=== PATIENT | male | born 1990 | race African-American/Black ===

== ENCOUNTER 2020-04-06 16:54 | Inpatient (IN) | payer OTHER, SELFPAY ==
[~2020-04-06 16:54] MED LIST: Dexamethasone 20 MG/5 ML VIAL ONE; Glycopyrrolate 0.2 MG/ML 5 ML SYRINGE ONE; Lidocaine 1% PF 5 ML VIAL ONE; PROPOFOL 200 MG/20 ML VIAL ONE; Rocuronium Bromide 10 MG/ML (10ML VIAL) ONE; Succinylcholine 200 MG/10 ml SYRINGE FS ONE
[2020-04-06 17:16] LABS: Hemoglobin 14.9 g/dL (14.0-18.0); Mean Corpuscular HGB CONC 33.4 g/dL (32.0-36.0); Mean Corpuscular Hemoglobin 27.4 pg (27.0-31.0); Mean Corpuscular Volume 81.9 fL (78.0-98.0); Mean Platelet Volume 6.2 fL (7.4-10.4); Platelet Count 273 thou/uL (130-400); RBC Distribution Width 11.9 % (11.5-14.5); Red Blood Cell (RBC) Count 5.45 mill/uL (4.70-6.10); White Blood Cell (WBC) Count 19.9 thou/uL (4.8-10.8)
[2020-04-06 17:20] LABS: INR-International Normal Ratio 1.1; PTT 25.2 sec (22.9-36.1); Prothrombin Time 14.4 sec (12.0-14.7)
[2020-04-06] MEDS ORDERED: CEFAZOLIN 1 GM VIAL ONE (17:25)
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
[2020-04-06 17:27] LABS: Bilirubin Negative (Negative); Blood, Urine Moderate (Negative); Glucose, Urine (Dipstick) Negative (Negative); Ketone, Urine Negative (Negative); Leukocyte Negative (Negative); Nitrite Negative (Negative); Protein, Urine (Dipstick) Negative (Neg-Trace); Specific Gravity, Urine 1.015 (1.005-1.030); Urobilinogen 0.2 mg/dL (Less than 2)
[2020-04-06 17:28] LABS: Clarity Hazy (Clear)
[2020-04-06 17:29] LABS: Bacteria/HPF None Seen HPF (None Seen); Squamous Epithelial None Seen HPF (0-3); WBC/HPF None Seen HPF (0-3)
[2020-04-06 17:29] LABS: Lactic Acid 3.4 mmol/L (0.5-2.2)
[2020-04-06 17:31] LABS: Band 9 % (5-11); Lymphocytes 4 % (21-51); MDiff Complete? YES; Monocytes 6 % (0-10); Myelocyte 1 % (0-0); Neutrophil 76 % (42-75); Platelet Morphology Comment Appears Adequate; RBC Morphology Normal; Reactive Lymphocytes 4 % (0-10)
[2020-04-06 17:34] LABS: ALT (SGPT) 40 U/L (8-55); AST (SGOT) 45 U/L (5-34); Albumin 3.4 g/dL (3.5-5.0); Alkaline Phosphatase 54 U/L (40-110); Anion Gap 13 mmol/L (10-20); BUN (Urea Nitrogen) 11 mg/dL (8.9-20.6); Bilirubin, Total 0.4 mg/dL (0.2-1.2); Calc. Creatinine Clearance 0 mL/min (70-130); Calcium 7.4 mg/dL (7.8-10.44); Carbon Dioxide 19 mmol/L (22-29); Chloride 112 mmol/L (98-107); Globulin 2.1 g/dL (2.4-3.5); Glucose 124 mg/dL (70-105); Potassium 3.4 mmol/L (3.5-5.1); Protein, Total 5.5 g/dL (6.0-8.3); Sodium 141 mmol/L (136-145)
[2020-04-06] MEDS ORDERED: Fentanyl 100 MCG/2 ML VIAL ONE ×2 (17:45→18:25)
[2020-04-06] MEDS ORDERED: Dextrose 5% in Water 1,000 ML IV PRN (17:54)
[2020-04-06] MEDS ORDERED: Morphine 2 MG/ML VIAL SLOW IVP PRN (17:54)
[2020-04-06] MEDS ORDERED: Ibuprofen 600 MG TAB PO SCH (17:54)
[2020-04-06] MEDS ORDERED: Ondansetron PF 4 MG/2 ML Vial IVP PRN (17:54)
[2020-04-06] MEDS ORDERED: Dextrose 50% Abboject 50 ML SYRINGE SLOW IVP PRN (17:54)
[2020-04-06] MEDS ORDERED: Ondansetron ODT 4 MG TAB PO PRN (17:54)
[2020-04-06] MEDS ORDERED: traMADol HCl 50 MG TAB PO PRN (17:54)
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
[2020-04-06] MEDS ORDERED: CEFAZOLIN 2 GM in Premix Bag 1 BAG IVPB SCH (18:00)
[2020-04-06] MEDS ORDERED: traMADol HCl 50 MG TAB PO SCH (18:00)
[2020-04-06] MEDS ORDERED: Lidocaine 1% w/Epinephrine 1:100K 20 ML VIAL ONE (18:19)
[2020-04-06] MEDS ORDERED: Midazolam HCl 2 mg/2 ml Vial ONE ×2 (18:25→20:45)
[2020-04-06] MEDS ORDERED: Morphine 2 MG/ML VIAL ONE (18:40)
[2020-04-06] MEDS ORDERED: AFRIN NASAL MIST 15 ML BOT ONE (18:49)
[2020-04-06] MEDS ORDERED: Ketamine 50 MG/ML (10ML VIAL) ONE (18:50)
[2020-04-06] MEDS ORDERED: Chlorhexidine Gluconate 15 ML UDCUP SSP ONE (18:52)
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
[2020-04-06] MEDS ORDERED: SUGAMMADEX SODIUM 200 MG/2 ML VIAL ONE (20:19)
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
[2020-04-06] MEDS ORDERED: Acetaminophen/Codeine Oral Solution 120 mg/12 mg per 5 ml PO PRN ×2 (20:46)
[2020-04-06] MEDS ORDERED: Acetaminophen 500 MG TAB PO SCH (21:00)
[2020-04-06] MEDS ORDERED: Famotidine 20 MG TAB PO SCH (21:00)
[2020-04-06 22:59] VITALS: BMI 34.5
[2020-04-06] MEDS: Ketorolac Tromethamine 30 MG/ML VIAL IVP SCH ×2 (23:12→23:16)
[2020-04-06] MEDS: Chlorhexidine Gluconate 15 ML UDCUP SSP SCH (23:12)
[2020-04-06] MEDS: Lactated Ringer's 1,000 ML IV SCH (23:12)
[2020-04-06] MEDS: Docusate 100 MG CAP PO SCH (23:12)
[2020-04-06] MEDS: Gabapentin 300 MG CAP PO SCH (23:13)
[2020-04-06] MEDS: Famotidine/PF 20 mg/2ml Vial SLOW IVP SCH (23:13)
[2020-04-06] MEDS: Senokot S 8.6-50 MG TAB PO SCH (23:13)
[2020-04-06] MEDS: Clindamycin/D5W 900 MG in Premix Bag 1 BAG IVPB SCH (23:16)
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
[2020-04-07] MEDS: Morphine 4 MG/ML VIAL SLOW IVP PRN (03:29)
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
[2020-04-07] MEDS: Ketorolac Tromethamine 30 MG/ML VIAL IVP SCH ×4 (05:12→23:44)
[2020-04-07] MEDS: Clindamycin/D5W 900 MG in Premix Bag 1 BAG IVPB SCH ×3 (05:12→21:16)
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
[2020-04-07 06:51] LABS: #Lymphocytes 0.8 thou/uL (1.20-3.40); %Basophils 0.2 % (0.0-1.0); %Lymphocytes 6.6 % (21.0-51.0); %Monocytes 8.6 % (0.0-10.0); %Neutrophils 84.5 % (42.0-75.0); Hemoglobin 13.7 g/dL (14.0-18.0); Mean Corpuscular HGB CONC 34.1 g/dL (32.0-36.0); Mean Corpuscular Hemoglobin 27.9 pg (27.0-31.0); Mean Corpuscular Volume 81.7 fL (78.0-98.0); Mean Platelet Volume 6.5 fL (7.4-10.4); Platelet Count 215 thou/uL (130-400); RBC Distribution Width 12.1 % (11.5-14.5); Red Blood Cell (RBC) Count 4.92 mill/uL (4.70-6.10); White Blood Cell (WBC) Count 11.9 thou/uL (4.8-10.8)
[2020-04-07 06:56] LABS: INR-International Normal Ratio 1.1; Prothrombin Time 14.3 sec (12.0-14.7)
[2020-04-07 06:57] LABS: PTT 29.2 sec (22.9-36.1)
[2020-04-07 07:06] LABS: Phosphorus 4.2 mg/dL (2.3-4.7)
[2020-04-07 07:10] LABS: ALT (SGPT) 39 U/L (8-55); AST (SGOT) 52 U/L (5-34); Albumin 3.3 g/dL (3.5-5.0); Alkaline Phosphatase 44 U/L (40-110); Anion Gap 11 mmol/L (10-20); BUN (Urea Nitrogen) 15 mg/dL (8.9-20.6); Bilirubin, Total 0.5 mg/dL (0.2-1.2); Calc. Creatinine Clearance 147 mL/min (70-130); Carbon Dioxide 23 mmol/L (22-29); Chloride 109 mmol/L (98-107); Globulin 2.1 g/dL (2.4-3.5); Glucose 127 mg/dL (70-105); Magnesium 1.7 mg/dL (1.6-2.6); Potassium 4.2 mmol/L (3.5-5.1); Protein, Total 5.4 g/dL (6.0-8.3); Sodium 139 mmol/L (136-145)
[2020-04-07] MEDS ORDERED: Magnesium Sulfate 3 GM in Sodium Chloride 0.9% 100 ML IV SCH (08:00)
[2020-04-07] MEDS: Lactated Ringer's 1,000 ML IV SCH ×3 (08:24→15:25)
[2020-04-07] MEDS: Famotidine/PF 20 mg/2ml Vial SLOW IVP SCH ×2 (08:26→21:16)
[2020-04-07] MEDS: Chlorhexidine Gluconate 15 ML UDCUP SSP SCH ×2 (08:28→21:15)
[2020-04-07] MEDS: Gabapentin 300 MG CAP PO SCH ×3 (08:28→22:12)
[2020-04-07] MEDS: Senokot S 8.6-50 MG TAB PO SCH ×2 (08:28→22:12)
[2020-04-07] MEDS: Docusate 100 MG CAP PO SCH ×2 (08:28→22:11)
--- NOTE | 2020-04-07 08:38 | CT ---
Exam: Facial bone CT without contrast COMPARISON: 04/06/2020. TECHNIQUE: Maxillofacial CT is performed in the axial plane. Sagittal, coronal and three-dimensional volumetric images are submitted for interpretation. FINDINGS: There are expected post traumatic changes in the soft tissues overlying the maxilla and mandible. Bilateral ocular lenses are appropriately located. Both globes are intact. Retrobulbar fat is preserv ed. Symmetric attenuation of the optic nerves and ocular rectus muscles. Visualized calvarium is intact. Adequate aeration of the visualized paranasal sinuses and mastoid air cells. Intact pterygoid plates and zygomatic arches. No nasal bone fracture. Maxillary ridge is intact. There is a fracture involving the anterior left mandibular body. Fracture may traverse the inferior a lveolar canal and compromise the left V3 cranial nerve. There is a comminuted and displaced fracture involving the distal body and angle of the right mandible. There is associated displacement. Visualized aerodigestive tract is patent. IMPRESSION: Bilateral mandible fracture as described above. Overall, post traumatic changes are similar to the CT performed on 04/06/2020. Transcribed Date/Time: 04/07/2020 9:06 AM
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
[2020-04-08 05:30] LABS: #Eosinphils 0.2 thou/uL (0.0-0.7); #Monocytes 0.8 thou/uL (0.11-0.59); #Neutrophils 6.3 thou/uL (1.40-6.50); %Basophils 0.1 % (0.0-1.0); %Lymphocytes 12.5 % (21.0-51.0); %Monocytes 9.5 % (0.0-10.0); %Neutrophils 75.8 % (42.0-75.0); Hemoglobin 11.5 g/dL (14.0-18.0); Mean Corpuscular HGB CONC 33.7 g/dL (32.0-36.0); Mean Corpuscular Hemoglobin 27.8 pg (27.0-31.0); Mean Corpuscular Volume 82.6 fL (78.0-98.0); Mean Platelet Volume 5.8 fL (7.4-10.4); Platelet Count 162 thou/uL (130-400); Red Blood Cell (RBC) Count 4.13 mill/uL (4.70-6.10); White Blood Cell (WBC) Count 8.3 thou/uL (4.8-10.8)
[2020-04-08] MEDS: Ketorolac Tromethamine 30 MG/ML VIAL IVP SCH ×4 (05:49→23:35)
[2020-04-08] MEDS: Clindamycin/D5W 900 MG in Premix Bag 1 BAG IVPB SCH ×3 (05:50→22:05)
[2020-04-08 05:53] LABS: SARS-CoV-2 PCR by NAA Not Detected (NotDetected)
[2020-04-08 05:55] LABS: Anion Gap 9 mmol/L (10-20); BUN (Urea Nitrogen) 13 mg/dL (8.9-20.6); Calc. Creatinine Clearance 134 mL/min (70-130); Calcium 8.1 mg/dL (7.8-10.44); Carbon Dioxide 29 mmol/L (22-29); Chloride 107 mmol/L (98-107); Glucose 90 mg/dL (70-105); Magnesium 2.2 mg/dL (1.6-2.6); Phosphorus 2.5 mg/dL (2.3-4.7); Potassium 4.5 mmol/L (3.5-5.1); Sodium 140 mmol/L (136-145)
[2020-04-08] MEDS: Famotidine/PF 20 mg/2ml Vial SLOW IVP SCH ×2 (09:06→22:05)
[2020-04-08] MEDS: Morphine 4 MG/ML VIAL SLOW IVP PRN ×2 (09:09→22:05)
[2020-04-08] MEDS: Sodium Chloride 0.9% 1,000 ML IV SCH ×2 (09:11→15:00)
[2020-04-08] MEDS ORDERED: PHENYLEPHRINE-NS 100 MCG/ML 10 ML SYRINGE ONE (09:34)
[2020-04-08] MEDS ORDERED: Glycopyrrolate 0.2 MG/ML 5 ML SYRINGE ONE (09:34)
[2020-04-08] MEDS ORDERED: Ondansetron PF 4 MG/2 ML Vial ONE (09:34)
[2020-04-08] MEDS ORDERED: Dexamethasone 20 MG/5 ML VIAL ONE (09:34)
[2020-04-08] MEDS: Chlorhexidine Gluconate 15 ML UDCUP SSP SCH ×2 (10:07→21:05)
[2020-04-08] MEDS: Gabapentin 300 MG CAP PO SCH ×3 (10:08→21:05)
[2020-04-08] MEDS: Docusate 100 MG CAP PO SCH ×2 (10:08→21:05)
[2020-04-08] MEDS: Senokot S 8.6-50 MG TAB PO SCH ×2 (10:08→21:05)
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
[2020-04-08] MEDS ORDERED: XYLOCAINE 2%-EPI 1:100,000 20 ML VIAL ONE ×2 (15:41→17:16)
[2020-04-08] MEDS ORDERED: Chlorhexidine Gluconate 15 ML UDCUP SSP ONE (15:41)
[2020-04-08] MEDS ORDERED: Bacitracin Zinc Ointment 30 gm TUBE ONE (15:41)
[2020-04-08] MEDS ORDERED: Sodium Chloride 0.9% 0 ML ONE (15:41)
[2020-04-08] MEDS ORDERED: Midazolam HCl 5 mg/5 ml Vial ONE (16:11)
[2020-04-08] MEDS ORDERED: Lidocaine 2% Jelly 5 ML TUBE ONE ×2 (16:11→16:14)
[2020-04-08] MEDS ORDERED: Lidocaine 4% Topical Sol 50 ML BOT ONE (16:14)
[2020-04-08] MEDS ORDERED: Fentanyl 100 MCG/2 ML VIAL ONE (17:14)
[2020-04-08] MEDS ORDERED: Lidocaine 1% w/Epinephrine 1:100K 20 ML VIAL ONE (17:15)
[2020-04-08] MEDS ORDERED: Ketamine 50 MG/ML (10ML VIAL) ONE (17:35)
[2020-04-08] MEDS ORDERED: SUGAMMADEX SODIUM 200 MG/2 ML VIAL ONE (19:15)
[2020-04-08] MEDS ORDERED: Ophthalmic Irrigation Solution 30 ML ONE (19:23)
[2020-04-08] MEDS ORDERED: Meperidine HCl/PF 25 MG/ML VIAL ONE (19:52)
[2020-04-08] MEDS ORDERED: Acetaminophen/Codeine Oral Solution 120 mg/12 mg per 5 ml PO PRN (20:03)
[2020-04-09] MEDS: Sodium Chloride 0.9% 1,000 ML IV SCH (04:36)
[2020-04-09] MEDS: Clindamycin/D5W 900 MG in Premix Bag 1 BAG IVPB SCH ×3 (05:42→21:08)
[2020-04-09] MEDS: Ketorolac Tromethamine 30 MG/ML VIAL IVP SCH ×4 (05:42→23:23)
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
[2020-04-09 06:30] LABS: Hemoglobin 11.2 g/dL (14.0-18.0); Mean Corpuscular HGB CONC 33.9 g/dL (32.0-36.0); Mean Corpuscular Hemoglobin 28.2 pg (27.0-31.0); Mean Corpuscular Volume 83.1 fL (78.0-98.0); Platelet Count 169 thou/uL (130-400); RBC Distribution Width 11.6 % (11.5-14.5); Red Blood Cell (RBC) Count 3.98 mill/uL (4.70-6.10); White Blood Cell (WBC) Count 8.3 thou/uL (4.8-10.8)
[2020-04-09 07:14] LABS: Anion Gap 13 mmol/L (10-20); BUN (Urea Nitrogen) 14 mg/dL (8.9-20.6); Calc. Creatinine Clearance 156 mL/min (70-130); Calcium 8.1 mg/dL (7.8-10.44); Carbon Dioxide 23 mmol/L (22-29); Chloride 109 mmol/L (98-107); Glucose 119 mg/dL (70-105); Magnesium 2.1 mg/dL (1.6-2.6); Phosphorus 4.2 mg/dL (2.3-4.7); Potassium 4.6 mmol/L (3.5-5.1); Sodium 140 mmol/L (136-145)
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
[2020-04-09] MEDS: Senokot S 8.6-50 MG TAB PO SCH ×2 (09:26→21:06)
[2020-04-09] MEDS: Famotidine/PF 20 mg/2ml Vial SLOW IVP SCH ×2 (09:26→21:06)
[2020-04-09] MEDS: Chlorhexidine Gluconate 15 ML UDCUP SSP SCH ×3 (09:27→21:06)
[2020-04-09] MEDS: Docusate 100 MG CAP PO SCH ×2 (09:27→21:06)
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
[2020-04-09] MEDS: Enoxaparin Sodium 30 MG/0.3 ML SYRINGE SC SCH (21:29)
[2020-04-10] MEDS: Clindamycin/D5W 900 MG in Premix Bag 1 BAG IVPB SCH ×2 (05:27→14:29)
[2020-04-10] MEDS: Ketorolac Tromethamine 30 MG/ML VIAL IVP SCH ×2 (05:27→11:48)
[2020-04-10] MEDS ORDERED: Famotidine 20 MG TAB PO SCH (09:00)
[2020-04-10] MEDS: Chlorhexidine Gluconate 15 ML UDCUP SSP SCH ×2 (09:11→14:29)
[2020-04-10] MEDS: Senokot S 8.6-50 MG TAB PO SCH (09:12)
[2020-04-10] MEDS: Docusate 100 MG CAP PO SCH (09:12)
[2020-04-10] MEDS: Enoxaparin Sodium 30 MG/0.3 ML SYRINGE SC SCH (09:12)
[2020-04-10 16:26] VITALS: BP 136/76; TEMP 97.9
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
== END 2020-04-10 15:58 | disposition home or self-care (01) | DRG 956 ==
LOC: ERS 16:54 → SURG A 17:54
PROVIDERS: ADMIT Surgery; ATTEND Surgery
PROC: 0QS836Z Reposition Right Femoral Shaft with Intramedullary Internal Fixation Device, Percutaneous Approach (ICD-10-PCS; principal; 2020-04-06)
PROC: 0NHV34Z Insertion of Internal Fixation Device into Left Mandible, Percutaneous Approach (ICD-10-PCS; 2020-04-06)
PROC: 0NH Head and Facial Bones, Insertion (ICD-10-PCS; 2020-04-06)
PROC: 0NSV04Z Reposition Left Mandible with Internal Fixation Device, Open Approach (ICD-10-PCS; 2020-04-08)
PROC: 0NST04Z Reposition Right Mandible with Internal Fixation Device, Open Approach (ICD-10-PCS; 2020-04-08)
DX: S72.301A Unspecified fracture of shaft of right femur, initial encounter for closed fracture (principal); S36.113A Laceration of liver, unspecified degree, initial encounter; Z20.822 Contact with and (suspected) exposure to COVID-19; S22.42XA Multiple fractures of ribs, left side, initial encounter for closed fracture; S02.651B Fracture of angle of right mandible, initial encounter for open fracture; S02.652B Fracture of angle of left mandible, initial encounter for open fracture; J45.909 Unspecified asthma, uncomplicated; F17.200 Nicotine dependence, unspecified, uncomplicated; S06.0X0A Concussion without loss of consciousness, initial encounter; S60.512A Abrasion of left hand, initial encounter; S60.511A Abrasion of right hand, initial encounter; S01.81XA Laceration without foreign body of other part of head, initial encounter; V89.2XXA Person injured in unspecified motor-vehicle accident, traffic, initial encounter
CPT/HCPCS: 36415; 70486; 71045; 76000; 76377; 80048; 80053; 81001; 83605; 83735; 84100; 85025; 85027; 85610; 85730; 86850; 86900; 86901; 87635; C1713; G0390; J0690; J1100; J1650; J1885; J2175; J2250; J2270; J2405; J2704; J3010; J3475; J3490; S0028; U0003; U0005

== ENCOUNTER 2020-07-01 10:52 | Outpatient (CLI) | payer SELFPAY ==
[2020-07-01 21:55] LABS: SARS-CoV-2 PCR by NAA Not Detected (NotDetected)
== END 2020-07-01 10:53 | disposition home or self-care (01) ==
LOC: LABBT 10:52
PROVIDERS: ATTEND Dentist Oral and Maxillofacial Surgery
DX: Z01.812 Encounter for preprocedural laboratory examination (principal); T81.40XA Infection following a procedure, unspecified, initial encounter; Z20.822 Contact with and (suspected) exposure to COVID-19
CPT/HCPCS: 87635; U0003; U0005

== ENCOUNTER 2020-07-06 06:03 | Day surgery (SDC) | payer SELFPAY ==
[2020-07-05 09:04] VITALS: BMI 32.3
[2020-07-06] MEDS ORDERED: Clindamycin/D5W 900 mg/50 ml Premix Bag ONE (06:30)
[2020-07-06] MEDS ORDERED: Hydrocortisone 1% Cream 30 GM TUBE ONE (06:47)
[2020-07-06] MEDS ORDERED: Chlorhexidine Gluconate 15 ML UDCUP SSP ONE ×2 (06:47→08:07)
[2020-07-06] MEDS ORDERED: Lidocaine 1% w/Epinephrine 1:100K 20 ML VIAL ONE (06:47)
[2020-07-06] MEDS ORDERED: Fentanyl 100 MCG/2 ML VIAL ONE (07:07)
[2020-07-06] MEDS ORDERED: AFRIN NASAL MIST 15 ML BOT ONE (07:37)
[2020-07-06] MEDS ORDERED: Lidocaine 1% PF 5 ML VIAL ONE (07:44)
[2020-07-06] MEDS ORDERED: Rocuronium Bromide 10 MG/ML (10ML VIAL) ONE (07:44)
[2020-07-06] MEDS ORDERED: Ondansetron PF 4 MG/2 ML Vial ONE (07:44)
[2020-07-06] MEDS ORDERED: Dexamethasone 20 MG/5 ML VIAL ONE (07:44)
[2020-07-06] MEDS ORDERED: PROPOFOL 200 MG/20 ML VIAL ONE (07:44)
[2020-07-06] MEDS ORDERED: Glycopyrrolate 0.2 MG/ML 5 ML SYRINGE ONE (07:44)
[2020-07-06] MEDS ORDERED: HYDROmorphone 0.5 MG/0.5 ML SYRINGE ONE (08:42)
[2020-07-06] MEDS ORDERED: Bacitracin Zinc Ointment 30 gm TUBE ONE (08:58)
[2020-07-06] MEDS ORDERED: Meperidine HCl/PF 25 MG/ML VIAL ONE (09:18)
== END 2020-07-06 10:40 | disposition home or self-care (01) ==
LOC: SDC 06:03
PROVIDERS: ATTEND Dentist Oral and Maxillofacial Surgery
PROC: 0NPW04Z Removal of Internal Fixation Device from Facial Bone, Open Approach (ICD-10-PCS; principal; 2020-07-06)
PROC: 0NBT0ZZ Excision of Right Mandible, Open Approach (ICD-10-PCS; principal; 2020-07-06)
DX: T81.42XA Infection following a procedure, deep incisional surgical site, initial encounter (principal)
CPT/HCPCS: J1100; J1170; J2175; J2405; J2704; J3010; J3490